=== PATIENT | female | born 1950 | race Caucasian/White ===

== ENCOUNTER 2018-11-25 08:00 | Outpatient (CLI) | payer MEDICARE | END 2018-11-25 23:59 | LOC: LAB.R 08:00 | PROVIDERS: ATTEND Podiatrist | DX: L03.031 Cellulitis of right toe (principal) | CPT/HCPCS: 87070; 87205 ==

== ENCOUNTER 2020-03-28 23:42 | Outpatient (CLI) | payer MEDICARE | END 2020-03-28 23:43 | disposition critical access hospital (66) | LOC: EMS 23:42 | PROVIDERS: ATTEND Surgery | DX: M54.2 Cervicalgia (principal); F41.9 Anxiety disorder, unspecified; R55 Syncope and collapse | CPT/HCPCS: A0425; A0427 ==

== ENCOUNTER 2020-03-28 23:58 | Inpatient (IN) | payer MEDICARE ==
[2020-03-29] MEDS ORDERED: HYDROmorphone 2 MG TABLET PO STA (00:22)
[2020-03-29] MEDS ORDERED: LORazepam 0.5 MG TABLET PO STA (00:22)
[2020-03-29 00:41] LABS: BASOPHILS % (AUTO) 0.3 %; EOSINOPHILS # (AUTO) 0.1 10^3/uL (0.0-0.7); LYMPHOCYTES # (AUTO) 0.6 10^3/uL (1.5-3.5); LYMPHOCYTES % (AUTO) 9.5 %; MEAN CORPUSCULAR HGB CONC 34.7 g/dL (32.0-36.0); MEAN CORPUSCULAR VOLUME 109.3 fL (81.0-99.0); MEAN PLATELET VOLUME 9.3 fL (7.9-10.8); MONOCYTES # (AUTO) 0.6 10^3/uL (0.0-1.0); MONOCYTES % (AUTO) 9.5 %; NEUTROPHILS # (AUTO) 4.9 10^3/uL (1.5-6.6); NEUTROPHILS % (AUTO) 79.1 %; PLT - PLATELET COUNT 162 10^3/uL (130-450); RED BLOOD COUNT 2.37 10^6/uL (4.20-5.40); RED CELL DISTRIBUTION WIDTH 15.5 % (12.0-15.0); WHITE BLOOD COUNT 6.2 x10^3/uL (4.8-10.8)
[2020-03-29 00:56] LABS: ALBUMIN 3.4 g/dL (3.2-5.5); ALBUMIN/GLOBULIN RATIO 0.7 (1.0-2.2); BILIRUBIN,TOTAL 0.8 mg/dL (0.2-1.0); CALCIUM 9.3 mg/dL (8.5-10.3); CREATININE 0.8 mg/dL (0.4-1.0); TOTAL PROTEIN 8.4 g/dL (6.7-8.2)
--- NOTE | 2020-03-29 01:03 | ED Physician Documentation ---
History of Present Illness - Stated complaint Stated Complaint: NECK PAIN, SYNCOPE - Chief complaint Chief Complaint: General - History obtained from History obtained from: Patient - Additonal information Additional information: 69-year-old woman with history of stage IV breast cancer, anxiety, high blood pressure, presents with right lateral posterior neck pain over past couple weeks, constant, aching, radiating from base of skull to shoulder, severe at present, associated with multiple episodes of her visual changes over the past 2 days. She says that she is not sure if she fainted but that she has had multiple episodes of pain associated with "vision going black" over past 2 days. She also has been feeling lightheaded. She was on an oral chemotherapy medication but stopped it a couple weeks ago. She has had diarrhea on and off since then associated with nausea. Denies abdominal pain, fever, chest pain shortness of breath cough confusion or focal weakness. Does endorse generalized weakness. Patient receives her cancer care at [facility]. Review of Systems Ten Systems: 10 systems reviewed and negative Constitutional: denies: Fever, Chills Cardiac: denies: Chest pain / pressure Respiratory: denies: Dyspnea GI: reports: Nausea. denies: Abdominal Pain, Vomiting : denies: Dysuria, Frequency Musculoskeletal: reports: Neck pain PD PAST MEDICAL HISTORY - Past Medical History Past Medical History: Yes Cardiovascular: Hypertension Respiratory: Shortness of breath GI: Other Musculoskeletal: Gout Derm: Other - Past Surgical History Past Surgical History: Yes General: Cholecystectomy Ortho: Arthroscopic surgery HEENT: Tonsil/Adenoidectomy, Other - Present Medications Home Medications: Ambulatory Orders Medication Instructions Recorded Confirmed Cholecalciferol (Vitamin D3) 1,000 unit PO DAILY 04/07/15 04/07/15 [Vitamin D3] Cyanocobalamin (Vitamin B-12) 1,000 mcg PO DAILY 04/07/15 04/07/15 [Vitamin B-12] Hydrochlorothiazide 25 mg PO DAILY 04/07/15 04/07/15 Losartan [Cozaar] 50 mg PO DAILY 04/07/15 04/07/15 Metoprolol Tartrate [Lopressor] 50 mg PO BID 04/07/15 04/11/15 allopurinoL [Allopurinol] 300 mg PO DAILY 04/07/15 04/07/15 - Allergies Allergies/Adverse Reactions: Allergies Allergy/AdvReac Type Severity Reaction Status Date / Time Sulfa (Sulfonamide Allergy Unknown Verified 03/29/20 00:13 Antibiotics) - Social History Does the pt smoke?: No Smoking Status: Never smoker Does the pt drink ETOH?: Yes Does the pt have substance abuse?: No - Immunizations Immunizations are current?: Yes - POLST Patient has POLST: No PD ED PE NORMAL - Vitals Vital signs reviewed: Yes - General General: Alert and oriented X 3 - HEENT HEENT: Atraumatic, PERRL, EOMI - Neck Neck: Supple, no meningeal sign - Cardiac Cardiac: Other (tachycardic rate, regular rhythm) - Respiratory Respiratory: No respiratory distress, Clear bilaterally - Abdomen Abdomen: Non tender, Non distended - Female Female : Deferred - Rectal Rectal: Deferred - Back Back: No spinal TTP, Other (R trapezius muscle ttp at neck insertion and along length of shoulder) - Derm Derm: Normal color - Extremities Extremities: Other (BL 1+ pitting edema) - Neuro Neuro: Alert and oriented X 3 - Psych Psych: Other (anxious mood and affect) Results - Vitals Vitals: Vital Signs - 24 hr 03/29/20 03/29/20 00:00 00:13 Temperature 36.4 C L 36.5 C Heart Rate 100 100 Respiratory 28 H 24 Rate Blood Pressure 166/95 H 166/95 H O2 Saturation 98 98 Oxygen O2 Source Room air - EKG (time done) 0034 Rate: Rate (enter#) (97) Rhythm: Sinus tachycardia [place]: Normal Intervals: Normal NE (borderline 146) QRS: Normal Ischemia: Normal ST segments - Labs Labs: Laboratory Tests 03/29/20 03/29/20 03/29/20 00:35 00:35 00:35 WBC 6.2 RBC 2.37 L Hgb 9.0 L Hct 25.9 L MCV 109.3 H MCH 38.0 H MCHC 34.7 RDW 15.5 H Plt Count 162 MPV 9.3 Neut # (Auto) 4.9 Lymph # (Auto) 0.6 L [place] # (Auto) 0.6 Eos # (Auto) 0.1 Baso # (Auto) 0.0 Absolute Nucleated RBC 0.00 Nucleated RBC % 0.0 Sodium 122 L Potassium 4.2 Chloride 90 L Carbon Dioxide 22 Anion Gap 10.0 BUN 18 Creatinine 0.8 Estimated GFR (MDRD) 71 L Glucose 175 H Calcium 9.3 Total Bilirubin 0.8 AST 69 H ALT 28 Alkaline Phosphatase 178 H Troponin I High Sens 10.7 Total Protein 8.4 H Albumin 3.4 Globulin 5.1 H Albumin/Globulin Ratio 0.7 L Lipase 55 H PD MEDICAL DECISION MAKING - ED course ED course: 69-year-old woman with past medical history ofMetastatic breast cancer presents with neck pain for the past 2 weeks along with chronic lightheadedness, nausea, diarrhea that has worsened over the past 2 weeks as well. Will attempt symptomatic therapy and will obtain CT head for possible syncopal episode yesterday. EKG without acute findings. Patient will likely be a good candidate f or observation. Departure - Departure Disposition: ED Place in Observation Clinical Impression: Syncope, Hyponatremia, Nausea and vomiting, Neck pain Condition: Stable
[2020-03-29] MEDS ORDERED: ONDANSETRON ODT 4 MG TABLET TL STA (01:07)
[2020-03-29] MEDS ORDERED: METOCLOPRAMIDE 10 MG/2 ML VIAL IVP STA (01:30)
[2020-03-29] MEDS ORDERED: ONDANSETRON 4 MG/2 ML VIAL IVP PRN (01:35)
[2020-03-29] MEDS ORDERED: ACETAMINOPHEN 325 MG TABLET PO PRN (01:35)
[2020-03-29] MEDS ORDERED: SODIUM CHLORIDE 0.9% 1,000 ML IV STA (01:36)
[2020-03-29] MEDS ORDERED: SODIUM CHLORIDE 0.9% 1,000 ML IV SCH ×2 (02:00→09:00)
--- NOTE | 2020-03-29 02:05 | HISTORY & PHYSICAL EXAMINATION ---
Chief Complaint - Chief Complaint Chief Complaint: Neck pain History of Present Illness - Admitted From Admitted From:: Home - History Obtained From Records Reviewed: Yes History obtained from: Patient, ER Physician, EMR - History of Present Illness HPI Comment/Other: This is a 69-year-old female with a past medical history significant for stage IV breast cancer, hypertension, chronic hyponatremia who presents today complaining of neck pain. She states the neck pain has been going on now for a few weeks. It was as bad as a 9 out of 10 and that is why she sought medical attention. She reports no recent falls although she did fall a couple of months ago but states her pain did not start until just a few weeks ago. The pain is worse with movement. She also reports numbness in her bilateral upper and lower extremities. She has no focal weaknesses but feels weak all over. She states that yesterday, she felt lightheaded and dizzy and passed out. She denies any trauma when she passed out. She denies any chest pain, dyspnea, palpitations prior to the event. She states she does have metastatic breast cancer to the sternum, lungs, liver. She is currently on anastrozole. She states she did not tolerate chemotherapy and was hospitalized about 6 weeks ago at [facility] in [place]. She also states that she has chronic hyponatremia and it is never as high as 130. She was previously on hydrochlorothiazide and this was discontinue d due to the hyponatremia. She denies any history of heart disease or diabetes. She reports having an echocardiogram over a year and a half ago. She states she has had adequate oral intake over the past few days. She has been nauseous but no vomiting. She has been spitting up a lot of saliva. Denies any abdominal pain. Has had occasional diarrhea on and off for the past couple of weeks as well. She states she only has a bowel movement after she eats. In the emergency department, she was found to be hyponatremic with a sodium of 122. Given the hyponatremia and the syncopal episode at home, medicine was consulted for admission. I did discuss goals of care with the patient and she states that she is a DNR. 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 Her mother had renal disease. Living arrangement: At home Living Situation: With spouse/s.o. Social History Notes: She lives at home with her . She does not smoke. She previously drank alcohol but has not drank in many years now. - POLST Patient has POLST: No Meds/Allgy - Home Medications Home Medications: Ambulatory Orders Medication Instructions Recorded Confirmed Cholecalciferol (Vitamin D3) 1,000 unit PO DAILY 04/07/15 04/07/15 [Vitamin D3] Cyanocobalamin (Vitamin B-12) 1,000 mcg PO DAILY 04/07/15 04/07/15 [Vitamin B-12] Hydrochlorothiazide 25 mg PO DAILY 04/07/15 04/07/15 Losartan [Cozaar] 50 mg PO DAILY 04/07/15 04/07/15 Metoprolol Tartrate [Lopressor] 50 mg PO BID 04/07/15 04/11/15 allopurinoL [Allopurinol] 300 mg PO DAILY 04/07/15 04/07/15 - Allergies Allergies/Adverse Reactions: Allergies Allergy/AdvReac Type Severity Reaction Status Date / Time Sulfa (Sulfonamide Allergy Unknown Verified 03/29/20 00:13 Antibiotics) Review of Systems - Constitutional Constitutional: reports: Fatigue, Weakness. denies: Fever, Chills, Poor appetite - Ears, Nose & Throat Ears, Nose & Throat: denies: Nasal discharge, Nasal congestion, Postnasal drainage - Cardiovascular Cariovascular: reports: Edema, Lightheadedness, Syncope. denies: Chest pain, Exertional dyspnea, Decr. exercise tolerance - Respiratory Respiratory: denies: Cough, SOB at rest, SOB with exertion - Gastrointestinal Gastrointestinal: reports: Diarrhea, Nausea. denies: Abdominal pain, Constipation, Vomiting - Genitourinary Genitourinary: denies: Dysuria, Frequency, Hematuria - Musculoskeletal Musculoskeletal: reports: Back pain. denies: Limited range of motion, Muscle weakness - Neurological Neurological: reports: General weakness, Dizziness, Numbness. denies: Focal weakness - Hematologic/Lymphatic Hematologic/Lymphatic: denies: Anemia, Bleeding tendencies - All Other Systems All Other Systems: reports: Reviewed and negative Prior Level of Functionality: She is independent with her ADLs. Exam - Vital Signs Reviewed Vital Signs: Yes Vital Signs: Vital Signs x48h Temp Pulse Resp BP Pulse Ox 03/29/20 00:13 36.5 C 100 24 166/95 H 98 03/29/20 00:00 36.4 C L 100 28 H 166/95 H 98 - Physical Exam General Appearance: positive: Alert, Mild distress Eyes Bilateral: positive: Normal inspection, Conjunctivae nml ENT: positive: Dry mucous membranes. negative: ENT inspection nml, No signs of dehydration Neck: positive: Nml inspection Respiratory: positive: No respiratory distress, Wheezes, Other (Right chest wall Port-A-Cath in place. Breath sounds diminished in the bilateral bases.) Cardiovascular: positive: No murmur, Tachycardia. negative: Bradycardia, Systolic murmur Abdomen: positive: Non-tender, No distention. negative: Tenderness Back: positive: Other (No obvious cervical spine tenderness, mass, erythema, edema. She does have some tenderness lateral to the C-spine.) Skin: positive: Warm, Dry Extremities: positive: Pedal edema (+2 pitting edema in the bilateral lower extremities) Neurologic/Psychiatric: positive: Sensation nml, Other (Sensations intact in all 4 extremities. She has no focal deficits. She is able to move all 4 extremities.). negative: Disoriented to person, Disoriented to place, Facial droop, Slurred/abnml speech Conclusion/Plan - Problem List (1) Syncope Conclusion/Plan: The etiology of this is not clear at the moment. Her EKG did not suggest ischemia initial troponin is negative. She does appear hypobulimic given dry oral mucosa but she does have significant lower extremity edema which is chronic. At this time, we will obtain echocardiogram in the morning and monitor her on telemetry. Check orthostatics. Trend her troponins. (2) Hyponatremia Conclusion/Plan: He states she has chronic hyponatremia and that her sodium is never above 130. Her sodium is now 122. She does have dry oral mucosa but has significant lower extremity edema. Unfortunate, urine osmolality is a send out lab here so this will not be of much use. We will check a urine sodium and chloride. And she has dry oral mucosa with nausea and vomiting at home, we will gently hydrate her and recheck sodium in the morning. If her sodium declines with IV fluids then she will need free water restriction. We will request labs from [facility] to see what her baseline sodium is. (3) Nausea and vomiting Conclusion/Plan: Reports nausea with some vomiting although this is predominantly just saliva that she is spitting up. She states this is due to her anxiety. Her abdominal exam is benign. We will gently hydrate her and start her on Zofran and Compazine as needed for nausea. If this persists, will consider further imaging of the abdomen. Diet as tolerated. (4) Neck pain Conclusion/Plan: She reports trauma many months ago but neck pain did not start till a few weeks ago. She does report numbness and tingling of the bilateral upper extremities but also complains of numbness in her lower extremities. She has no focal deficits on exam. We will obtain a cervical spine film to evaluate for possible metastatic disease. We will use Tylenol, oxycodone as needed for pain. Will consider a CT of the cervical spine depending on what x-rays show. (5) Metastatic breast cancer Conclusion/Plan: She is reportedly just on anastrozole right now. She states she did not do well with chemotherapy in the past. We will request records from [facility] in [place]. (6) Anemia Conclusion/Plan: Suspect this is likely multifactorial but likely due to her underlying malignancy. Her MCV is elevated at 109. We will check B12, folate, iron, ferritin. (7) Hypertension Conclusion/Plan: She is currently hypertensive with systolic in the 160s. This is likely exacerbated by her neck pain. We will resume her home antihypertensives once dosing is confirmed by pharmacy. - Lab Results Lab results reviewed: Yes Fish Bones: 03/29/20 00:35 03/29/20 00:35 - Diagnostic Imaging Results Diagnostic Imaging Results: positive: Final report reviewed - EKG Results EKG Interpreted Independently: Yes EKG Comparison: No prior EKG EKG Findings: EKG shows a sinus rhythm. No obvious ischemic changes. There is some motion artifact present. Core Measures - Anticipated LOS I expect patient to be DC'd or transferred within 96 hours.: Yes - Issues Hospital Issues and Management Plan: 69-year-old female with metastatic breast cancer presents with neck pain and syncope at home. Found to be hyponatremic. We will place in observation for gentle IV hydration, telemetry, echocardiogram. - DVT/VTE - Prophylaxis VTE/DVT Device ordered at admit?: Yes VTE/DVT Prophylaxis med ordered at admit?: Yes
[2020-03-29 02:41] LABS: C. PNEUMONIAE- RESP PCR PANEL NOT DETECTED
[2020-03-29] MEDS: PROCHLORPERAZINE 10 MG/2 ML VIAL IVP PRN ×3 (03:07→16:21)
[2020-03-29] MEDS: oxyCODONE 5 MG TABLET PO PRN (03:08)
[2020-03-29 06:03] LABS: BASOPHILS % (AUTO) 0.3 %; EOSINOPHILS % (AUTO) 0.1 %; HGB - HEMOGLOBIN 8.8 g/dL (12.0-16.0); LYMPHOCYTES # (AUTO) 0.6 10^3/uL (1.5-3.5); LYMPHOCYTES % (AUTO) 7.4 %; MEAN CORPUSCULAR HEMOGLOBIN 37.9 pg (27.0-31.0); MEAN CORPUSCULAR HGB CONC 34.4 g/dL (32.0-36.0); MEAN CORPUSCULAR VOLUME 110.3 fL (81.0-99.0); MEAN PLATELET VOLUME 9.6 fL (7.9-10.8); MONOCYTES # (AUTO) 0.4 10^3/uL (0.0-1.0); MONOCYTES % (AUTO) 5.4 %; NEUTROPHILS # (AUTO) 6.4 10^3/uL (1.5-6.6); NEUTROPHILS % (AUTO) 86.3 %; PLT - PLATELET COUNT 154 10^3/uL (130-450); RED BLOOD COUNT 2.32 10^6/uL (4.20-5.40); RED CELL DISTRIBUTION WIDTH 15.2 % (12.0-15.0); WHITE BLOOD COUNT 7.4 x10^3/uL (4.8-10.8)
[2020-03-29 06:23] LABS: % IRON SATURATION 13 % (20-50); IRON 41 ug/dL (28-170); TOTAL IRON BINDING CAPACITY 312 ug/dL (250-450); TRANSFERRIN 223 mg/dL (192-382)
[2020-03-29 06:38] LABS: PLATELET ESTIMATE, MANUAL NORMAL (130-450,000) (NORMAL)
[2020-03-29 06:39] LABS: FERRITIN 812.1 ng/mL (11.0-306.8)
[2020-03-29 07:24] LABS: CALCIUM 9.2 mg/dL (8.5-10.3); CREATININE 0.8 mg/dL (0.4-1.0)
--- NOTE | 2020-03-29 07:43 | CT Report ---
PROCEDURE: HEAD WO INDICATIONS: lightheadedness TECHNIQUE: Noncontrast 4.5 mm thick angled axial sections acquired from the foramen magnum to the vertex. For r adiation dose reduction, the following was used: automated exposure control, adjustment of mA and/or kV according to patient size. COMPARISON: None. FINDINGS: Image quality: Excellent. CSF spaces: Basal cisterns are patent. No extra-axial fluid collections. Ventricles are normal in size and shape. Brain: No midline shift. No intracranial masses or hemorrhage. Ruggiero-white matter interface is norm al. Skull and face: Calvarium and visualized facial bones are intact, without suspicious lesions. Sinuses: The right maxillary sinus is opacified. Mastoids are clear. IMPRESSION: 1. No acute intracranial abnormality. 2. Opacification of the right maxillary sinus consistent with sinusitis. No significant discrepancy with the preliminary interpretation. Reviewed by: Carlos Bennett MD on 03/29/2020 7:42 AM PST Approved by: Carlos Bennett MD on 03/29/2020 7:42 AM PST Station ID: [id number]
--- NOTE | 2020-03-29 07:53 | XRAY Report ---
PROCEDURE: Chest 1 View X-Ray INDICATIONS: Chest Pain TECHNIQUE: One view of the chest was acquired. COMPARISON: Chest CT with contrast, 04/07/2015. FINDINGS: Surgical changes and devices: There is a Port-A-Cath on the right with the tip projecting to the left brachiocephalic vein. Lungs and pleura: Bilateral interstitial infiltrates. Left basilar consolidation or atelectasis. Sma ll left pleural effusion may be present. No pneumothorax. Mediastinum: Mediastinal contours appear normal. Heart size is mildly increased. Bones and chest wall: No suspicious bony lesions. Overlying soft tissues appear unremarkable. IMPRESSION: 1. Mild cardiomegaly. Bilateral interstitial infiltrates suspicious for pulmonary edema. 2. Left basilar consolidation or atelectasis. 3. Small left effusion may be present. 4. The right Port-A-Cath tip projects to the left brachiocephalic vein. No significant discrepancy with the preliminary interpretation. Reviewed by: Carlos Bennett MD on 03/29/2020 7:51 AM PST Approved by: Carlos Bennett MD on 03/29/2020 7:51 AM PST Station ID: [id number]
[2020-03-29] MEDS ORDERED: MAGNESIUM SULFATE 2 GRAM 2 GM/50 ML BAG IV ONE (08:16)
--- NOTE | 2020-03-29 08:17 | XRAY Report ---
PROCEDURE: Cervical Spine 2 View INDICATIONS: Neck pain. History of breast cancer. Fall. TECHNIQUE: 4 view(s) of the cervical spine were acquired. COMPARISON: None. FINDINGS: Bones: No fractures or dislocations to the C7-T1 level. Mild reversal of normal cervical lordosis i s seen. Minimal anterolisthesis of C3 on C4 is also noted. Degenerative endplate changes are noted th roughout cervical spine. The lateral masses of C1 appear intact on the odontoid view. No suspicious bony lesions. Soft tissues: No prevertebral soft tissue swelling. IMPRESSION: No acute cervical spine fracture or dislocation. Degenerative disc disease throughout ce rvical spine. Minimal anterolisthesis of C3 on C4. Reviewed by: Mayco Servin MD on 03/29/2020 8:16 AM PST Approved by: Mayco Servin MD on 03/29/2020 8:16 AM PST Station ID: [id number]
[2020-03-29] MEDS: ENOXAPARIN 40 MG/0.4 ML SYRINGE SUBQ SCH (08:37)
--- NOTE | 2020-03-29 08:40 | Ultrasound Report ---
PROCEDURE: Duplex Ext Veins Bilateral INDICATIONS: ALIA VIDHYA TECHNIQUE: Real-time imaging, as well as color and pulse Doppler interrogation, were performed of the deep veins of both legs from the inguinal ligament to the popliteal fossa. COMPARISON: None FINDINGS: The deep veins are normally compressible, and free of intraluminal thrombus. Color and pu lse Doppler demonstrate normal phasic intravascular flow. There is normal augmentation response to d istal compression maneuver. Note is made of bilateral popliteal cysts ((Cordoba's cysts) behind each k nee, measuring up to 1.6 x 4.2 x 4.7 cm on the right and 1.0 x 2.3 x 4.6 cm on the left. IMPRESSION: Bilateral Cordoba's cyst, no DVT found. Reviewed by: Burt Blevins MD on 03/29/2020 8:38 AM PST Approved by: Burt Blevins MD on 03/29/2020 8:38 AM PST Station ID: [id number]
[2020-03-29] MEDS: SODIUM CHLORIDE FLUSH 0.9% 10 ML SYRINGE IVP SCH ×2 (08:53→16:22)
[2020-03-29] MEDS: SODIUM CHLORIDE 1 GM TABLET PO SCH (08:58)
[2020-03-29] MEDS ORDERED: METOPROLOL TARTRATE 50 MG TABLET PO SCH (09:00)
--- NOTE | 2020-03-29 10:47 | PHARMACY PROGRESS NOTE ---
- Best Possible Medication History Admit Date and Time: 03/29/20 0135 Processed by: Pharmacy Medication History completed: Yes Patient Interview: Completed Secondary Source(s): Written medication list, Physician records, Pharmacy records, Insurance records (PATIENT INTERVIEWED BY [employer] TICKET SELLING. PATIENT ABLE TO CONFIRM HOME MEDICATIONS. ) As the person ultimately responsible for medication therapy, providers are able to order a medication from an existing home medication list in [facility] via the "Reconcile Routine" prior to Confirmation of that medication by administrative support manager. Such practice is discouraged except when the physician, in their clinical judgment, deems that a medical need exists for a medication without regard to previous use.
[2020-03-29] MEDS: SODIUM CHLORIDE FLUSH 0.9% 10 ML SYRINGE IVP PRN ×3 (11:29→22:38)
[2020-03-29] MEDS: MORPHINE 2 MG/ML CARPUJECT IVP PRN ×2 (11:30→20:00)
[2020-03-29] MEDS ORDERED: PROMETHAZINE INJ 25 MG in SODIUM CHLORIDE 0.9% 50 ML IV PRN (11:54)
[2020-03-29] MEDS ORDERED: ALBUTEROL NEB 2.5 MG/3 ML INH PRN (11:58)
[2020-03-29] MEDS: ANASTROZOLE 1 MG TABLET PO SCH (12:26)
[2020-03-29] MEDS: LOSARTAN 50 MG TABLET PO SCH (12:26)
[2020-03-29] MEDS: SODIUM CHLORIDE 0.9% 1,000 ML IV SCH (12:26)
[2020-03-29] MEDS: ONDANSETRON 4 MG/2 ML VIAL IVP PRN ×2 (12:27→22:38)
[2020-03-29 13:13] LABS: CALCIUM 9.5 mg/dL (8.5-10.3); CREATININE 0.9 mg/dL (0.4-1.0)
[2020-03-29] MEDS: METOPROLOL SUCCINATE 50 MG TABLET PO SCH (16:22)
[2020-03-30] MEDS: oxyCODONE 5 MG TABLET PO PRN ×2 (00:07→12:30)
[2020-03-30] MEDS: ONDANSETRON ODT 4 MG TABLET TL PRN ×2 (00:07→04:54)
[2020-03-30] MEDS: SODIUM CHLORIDE 0.9% 1,000 ML IV SCH (00:08)
[2020-03-30] MEDS: SODIUM CHLORIDE FLUSH 0.9% 10 ML SYRINGE IVP SCH ×4 (00:10→23:57)
[2020-03-30] MEDS ORDERED: LORazepam 0.5 MG TABLET PO PRN (05:08)
[2020-03-30 05:47] LABS: BASOPHILS % (AUTO) 0.3 %; EOSINOPHILS % (AUTO) 0.4 %; LYMPHOCYTES # (AUTO) 0.7 10^3/uL (1.5-3.5); LYMPHOCYTES % (AUTO) 8.6 %; MEAN CORPUSCULAR HEMOGLOBIN 38.5 pg (27.0-31.0); MEAN CORPUSCULAR HGB CONC 35.2 g/dL (32.0-36.0); MEAN CORPUSCULAR VOLUME 109.4 fL (81.0-99.0); MEAN PLATELET VOLUME 9.1 fL (7.9-10.8); MONOCYTES # (AUTO) 0.8 10^3/uL (0.0-1.0); NEUTROPHILS # (AUTO) 6.2 10^3/uL (1.5-6.6); NEUTROPHILS % (AUTO) 80.1 %; PLT - PLATELET COUNT 166 10^3/uL (130-450); RED BLOOD COUNT 2.34 10^6/uL (4.20-5.40); RED CELL DISTRIBUTION WIDTH 15.4 % (12.0-15.0); WHITE BLOOD COUNT 7.7 x10^3/uL (4.8-10.8)
[2020-03-30 05:59] LABS: CALCIUM 9.3 mg/dL (8.5-10.3); CREATININE 0.9 mg/dL (0.4-1.0); MAGNESIUM 1.8 mg/dL (1.7-2.8)
[2020-03-30] MEDS ORDERED: IOVERSOL 320 100 ML VIAL IVP ONE ×2 (08:59→09:52)
[2020-03-30] MEDS: ENOXAPARIN 40 MG/0.4 ML SYRINGE SUBQ SCH (09:18)
[2020-03-30] MEDS: METOPROLOL SUCCINATE 50 MG TABLET PO SCH (09:19)
[2020-03-30] MEDS: LOSARTAN 50 MG TABLET PO SCH (09:20)
[2020-03-30] MEDS: SODIUM CHLORIDE 1 GM TABLET PO SCH (09:20)
[2020-03-30] MEDS: ANASTROZOLE 1 MG TABLET PO SCH (09:20)
--- NOTE | 2020-03-30 10:07 | CT Report ---
PROCEDURE: ANGIO CHEST W/WO INDICATIONS: suddenly SOB CONTRAST: IV CONTRAST: Optiray 320 ml: 80 PO CONTRAST: *NO PO CONTRAST TECHNIQUE: After the administration of intravenous contrast, 2 mm thick sections acquired from the pulmonary api markus to the posterior costophrenic angles. 3-dimensional maximum intensity projection (MIP) coronal a nd sagittal reformats were then acquired through the thorax. For radiation dose reduction, the follow ing was used: automated exposure control, adjustment of mA and/or kV according to patient size. COMPARISON: 04/07/2015 CT chest with contrast FINDINGS: Image quality: Excellent. Pulmonary arteries: Pulmonary arteries are normal in size, and demonstrate no intraluminal filling d efects to suggest central pulmonary embolism. Lungs and pleura: 2 cm medial left apical lung mass. Reference image 184/7 (axial sequence). Left bas ilar atelectasis, likely involving all the basilar segments of the left lower lobe. Mild left pleural effusion. Minimal right basilar atelectasis. No pleural effusions or pneumothorax. Central and norm pheral airways are patent. Mediastinum: Heart size is normal, without pericardial effusion. Coronary atherosclerotic calcificat ions. Right hilar adenopathy may potentially represent malignant adenopathy. There is also prominent subcarinal lymph node, as well. Thoracic aorta is normal in caliber and enhancement. Esophagus is no rmal in caliber, without hiatal hernia. Bones and chest wall: No suspicious bony lesions. Ribs and thoracic spine appear intact throughout. The thyroid is normal. No axillary or supraclavicular adenopathy. Post left breast lumpectomy and postradiation change, left breast with residual thickening at the area of previous breast mass which had extended to the skin. Abdomen: Visualized upper abdominal solid organs appear normal in the early arterial phase of enhanc ement. IMPRESSION: 1. No evidence acute pulmonary emboli. 2. Postlumpectomy and radiation change in the left breast, with residual masslike scarring versus den sity in the left breast. 3. Collapse of the basilar portion of the left lower lobe with associated small left pleural effusion . 4. 2 cm left apical lung mass, possibly representing metastatic disease or primary bronchogenic carci noma. 5. Right hilar and mediastinal adenopathy is suspicious for metastatic disease. 6. Coronary artery disease. Comment: Consider PET/CT on a nonemergent basis on a later date. Reviewed by: Mamadou Welsh MD on 03/30/2020 10:06 AM PST Approved by: Mamadou Welsh MD on 03/30/2020 10:06 AM PST Station ID: [id number]
[2020-03-30] MEDS: LORazepam 0.5 MG TABLET PO PRN ×2 (11:12→16:16)
--- NOTE | 2020-03-30 12:04 | PROVIDER PROGRESS NOTE ---
Subjective - Prog Note Date Prog Note Date: 03/30/20 - Subjective Pt reports feeling: No change Subjective: Patient report her neck pain is better control, her nausea and vomiting also has some improved. But last night patient suddenly developed shortness of breathing, right now patient needed 2 liter of oxygen. She denies chest pain, palpitation, Fever or chill. Discussed CTA imaging study results with the patient, treatment plan in the next step. CTA show no evidence of PE but Collapse of basilar portion of the left lower lobe With small left pleural effusion, 2 cm left apical lung mass possible representing metastasis disease, Right hilar and mediastinal adenopathy is suspicious for metastasis. Patient also report she had metastatic liver mass. Patient know she has stage IV breast cancer and metastasis to lung and liver. Discussed possible palliative care but patient declined at this point, she states she will see her oncologist and to make the decision for her. Patient's CODE STATUS is still DNR. Current Medications - Current Medications Current Medications: Active Medications Acetaminophen (Acetaminophen 325 Mg Tablet) 650 mg PO Q4HR PRN PRN Reason: Pain 1 to 4 Albuterol (Albuterol Neb 2.5 Mg/3 Ml) 2.5 mg INH RTQ4H PRN PRN Reason: Wheezing Last Admin: 03/30/20 10:57 Dose: 2.5 mg Documented by: Anastrozole (Anastrozole 1 Mg Tablet) 1 mg PO DAILY [facility] Last Admin: 03/30/20 09:20 Dose: 1 mg Documented by: Aspirin (Aspirin Chew 81 Mg Tablet) 81 mg PO DAILY [facility] Enoxaparin Sodium (Enoxaparin 40 Mg/0.4 Ml Syringe) 40 mg SUBQ DAILY [facility] Last Admin: 03/30/20 09:18 Dose: 40 mg Documented by: Ketorolac Tromethamine (Ketorolac 15 Mg/Ml Vial) 15 mg IVP Q6HR PRN PRN Reason: PAIN Stop: 04/03/20 13:20 Lorazepam (Lorazepam 0.5 Mg Tablet) 0.5 mg PO Q4H PRN PRN Reason: Anxiety Last Admin: 03/30/20 11:12 Dose: 0.5 mg Documented by: Losartan Potassium (Losartan 50 Mg Tablet) 50 mg PO DAILY [facility] Last Admin: 03/30/20 09:20 Dose: 50 mg Documented by: Metoprolol Succinate (Metoprolol Succinate 50 Mg Tablet) 100 mg PO DAILY [facility] Last Admin: 03/30/20 09:19 Dose: 100 mg Documented by: Morphine Sulfate (Morphine 2 Mg/Ml Carpuject) 2 mg IVP Q2HR PRN PRN Reason: PAIN Last Admin: 03/29/20 20:00 Dose: 2 mg Documented by: Ondansetron HCl (Ondansetron Odt 4 Mg Tablet) 4 mg TL Q6HR PRN PRN Reason: Nausea / Vomiting Last Admin: 03/30/20 04:54 Dose: 4 mg Documented by: Ondansetron HCl (Ondansetron 4 Mg/2 Ml Vial) 4 mg IVP Q4HR PRN PRN Reason: Nausea / Vomiting Last Admin: 03/29/20 22:38 Dose: 4 mg Documented by: Oxycodone HCl (Oxycodone 5 Mg Tablet) 5 mg PO Q4HR PRN PRN Reason: PAIN Last Admin: 03/30/20 00:07 Dose: 5 mg Documented by: Prochlorperazine Edisylate (Prochlorperazine 10 Mg/2 Ml Vial) 10 mg IVP Q6HR PRN PRN Reason: Nausea / Vomiting Last Admin: 03/29/20 16:21 Dose: 10 mg Documented by: Sodium Chloride (Sodium Chloride Flush 0.9% 10 Ml Syringe) 10 ml IVP PRN PRN PRN Reason: NEEDED PER PROVIDER ORDERS Last Admin: 03/29/20 22:38 Dose: 10 ml Documented by: Sodium Chloride (Sodium Chloride Flush 0.9% 10 Ml Syringe) 10 ml IVP 0100,0900,1700 [facility] Last Admin: 03/30/20 09:20 Dose: Not Given Documented by: Cyanocobalamin (Vitamin B-12) [Vitamin B-12] 1,000 mcg PO DAILY 04/07/15 Losartan [Cozaar] 50 mg PO DAILY 04/07/15 allopurinoL [Allopurinol] 200 mg PO DAILY 04/07/15 Albuterol Sulfate [Proair Digihaler] 2 puffs PO Q4H PRN 03/29/20 Anastrozole 1 mg PO DAILY 03/29/20 Metoprolol Succinate [Toprol Xl] 100 mg PO DAILY 03/29/20 Objective - Vital Signs/Intake & Output Vital Signs: Vital Signs x48h Temp Pulse Pulse Resp BP BP Pulse Ox 12/04/20 10:58 91 26 H 03/30/20 09:23 88 167/87 H 03/30/20 08:47 36.5 C 97 18 154/100 H 95 03/30/20 06:18 87 153/97 H 03/30/20 04:55 36.5 C 93 22 182/99 H 94 Intake & Output: Intake & Output 03/27/20 03/28/20 03/29/20 03/30/20 23:59 23:59 23:59 23:59 Intake Total 2126.385 98.611 Output Total 1900 Balance 226.385 98.611 - Objective General Appearance: positive: Alert, Mild distress. negative: Lethargic Eyes Bilateral: positive: Normal inspection, PERRL, No lid inflammation ENT: positive: ENT inspection nml, No signs of dehydration. negative: Purulent nasal drainage Neck: positive: Nml inspection, Thyroid nml, Trachea midline. negative: Thyromegaly, Tracheal deviation Respiratory: positive: Chest non-tender, Rales. negative: No respiratory distress, Breath sounds nml, Wheezes, Rhonchi Cardiovascular: positive: Regular rate & rhythm, No murmur. negative: Tachycardia, Bradycardia, Systolic murmur, Diastolic murmur Peripheral Pulses: 2+ Radial (R), 2+ Radial (L) Abdomen: positive: Non-tender, Nml bowel sounds, No distention. negative: Tenderness, Guarding, Rebound Back: positive: Nml inspection Skin: positive: Color nml, No rash, Warm, Dry. negative: Cyanosis, Diaphoresis, Pallor Extremities: positive: Non-tender, Full ROM, Pedal edema Neurologic/Psychiatric: positive: Oriented x3, Sensation nml, Mood/affect nml. negative: Weakness, Sensory loss, Facial droop, Slurred/abnml speech, Depressed mood/affect - Lab Results Fish Bones: 03/30/20 05:28 03/30/20 05:28 Other Labs: Lab Results x24hrs 03/30/20 03/30/20 03/30/20 Range/Units 11:07 05:28 05:28 WBC 7.7 (4.8-10.8) x10^3/uL RBC 2.34 L (4.20-5.40) 10^6/uL Hgb 9.0 L (12.0-16.0) g/dL Hct 25.6 L (37.0-47.0) % MCV 109.4 H (81.0-99.0) fL MCH 38.5 H (27.0-31.0) pg MCHC 35.2 (32.0-36.0) g/dL RDW 15.4 H (12.0-15.0) % Plt Count 166 (130-450) 10^3/uL MPV 9.1 (7.9-10.8) fL Neut # (Auto) 6.2 (1.5-6.6) 10^3/uL Lymph # (Auto) 0.7 L (1.5-3.5) 10^3/uL [place] # (Auto) 0.8 (0.0-1.0) 10^3/uL Eos # (Auto) 0.0 (0.0-0.7) 10^3/uL Baso # (Auto) 0.0 (0.0-0.1) 10^3/uL Absolute Nucleated RBC 0.00 x10^3/uL Nucleated RBC % 0.0 /100WBC Sodium (135-145) mmol/L Potassium (3.5-5.0) mmol/L Chloride (101-111) mmol/L Carbon Dioxide (21-32) mmol/L Anion Gap (6-13) BUN (6-20) mg/dL Creatinine (0.4-1.0) mg/dL Estimated GFR (MDRD) (>89) Glucose (70-100) mg/dL Calcium (8.5-10.3) mg/dL Magnesium (1.7-2.8) mg/dL Troponin I High Sens 69.9 H* (2.3-14.8) ng/L Folate 23.26 (5.90 - >24.8) ng/mL 03/30/20 03/29/20 Range/Units 05:28 13:00 WBC (4.8-10.8) x10^3/uL RBC (4.20-5.40) 10^6/uL Hgb (12.0-16.0) g/dL Hct (37.0-47.0) % MCV (81.0-99.0) fL MCH (27.0-31.0) pg MCHC (32.0-36.0) g/dL RDW (12.0-15.0) % Plt Count (130-450) 10^3/uL MPV (7.9-10.8) fL Neut # (Auto) (1.5-6.6) 10^3/uL Lymph # (Auto) (1.5-3.5) 10^3/uL [place] # (Auto) (0.0-1.0) 10^3/uL Eos # (Auto) (0.0-0.7) 10^3/uL Baso # (Auto) (0.0-0.1) 10^3/uL Absolute Nucleated RBC x10^3/uL Nucleated RBC % /100WBC Sodium 124 L 122 L (135-145) mmol/L Potassium 4.4 4.6 (3.5-5.0) mmol/L Chloride 94 L 89 L (101-111) mmol/L Carbon Dioxide 20 L 23 (21-32) mmol/L Anion Gap 10.0 10.0 (6-13) BUN 20 16 (6-20) mg/dL Creatinine 0.9 0.9 (0.4-1.0) mg/dL Estimated GFR (MDRD) 62 L 62 L (>89) Glucose 150 H 141 H (70-100) mg/dL Calcium 9.3 9.5 (8.5-10.3) mg/dL Magnesium 1.8 (1.7-2.8) mg/dL Troponin I High Sens (2.3-14.8) ng/L Folate (5.90 - >24.8) ng/mL ABX Reporting Has patient been on IV antibiotics over the past 48 hours?: No Assessment/Plan - Problem List (1) Shortness of breath Impression: 03/30last night patient suddenly developed shortness of breathing, right now patient needed 2 liter of oxygen. She denies chest pain, palpitation, Fever or chill. CTA show no evidence of PE but Collapse of basilar portion of the left lower lobe With small left pleural effusion, 2 cm left apical lung mass possible representing metastasis disease, Right hilar and mediastinal adenopathy is suspicious for metastasis. It is more likely combination effect with patient metastasis lung mass and small pleural effusion. pt also has bilateral lower extremity edema, start once lasix IV, and continue PO lasix, Supplemental of oxygen, Continue breathing treatment as needed, Patient stated she want to follow-up her oncologist to seek further intervention plan (2) Syncope 03/30 The etiology of this is not clear at the moment. her Echo show preserved EF with no evidence of aortic aortic stenosis. repeated Her EKG did not suggest ischemia. initial troponin is negative, then slight elevated and flat. orthostatics does not support orthostatic hypotension. Patient also present bilaterally lower extremity edema, small pleural effusion. Educated patient Slowly stand, and walk, Keep hydration, Prevention of fall. (3)elevated Troponin / initial troponin is negative, then slight elevated. Patient denies chest pain, palpitation. repeated Her EKG did not suggest ischemia. We will continue check troponin, It is likely demand due to patient respiratory distress. Continue telemetry, continue aspirin, continue metoprolol. (2) Hyponatremia Conclusion/Plan: 03/30 improved, sodium 124. Patient present bilateral lower extremity edema, small pleural effusion. 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 Patient also has history of hyponatremia (3) Nausea and vomiting Conclusion/Plan: 03/30 Inflow, patient report she felt better for nausea and vomiting, Continue antiemesis as needed (4) Neck pain Conclusion/Plan: Patient reported neck pain is better control. X-ray of the neck show degenerative disease without fracture or dislocation, or metastatic lesion. Continue pain management (5) Metastatic breast cancer Conclusion/Plan: ., Patient will continue seek oncologist intervention, she does not want palliative care now (6) Anemia Conclusion/Plan: Hemoglobin is stable. Suspect this is likely multifactorial but likely due to her underlying malignancy. Her MCV is elevated at 109. We will check B12, folate, iron, ferritin. (7) Hypertension Conclusion/Plan: stable, resume home meds.
--- NOTE | 2020-03-30 12:05 | ADVANCE CARE PLANNING NOTE ---
Advance Care Planning - Planning Encounter Date: 03/30/20
[2020-03-30] MEDS: ASPIRIN CHEW 81 MG TABLET PO SCH (12:30)
[2020-03-30] MEDS ORDERED: FUROSEMIDE 20 MG/2 ML VIAL IVP ONE (13:00)
[2020-03-30] MEDS: ONDANSETRON 4 MG/2 ML VIAL IVP PRN (16:33)
[2020-03-30] MEDS: KETOROLAC 15 MG/ML VIAL IVP PRN (20:34)
[2020-03-31] MEDS: KETOROLAC 15 MG/ML VIAL IVP PRN ×3 (04:52→22:16)
[2020-03-31 05:14] LABS: BASOPHILS % (AUTO) 0.1 %; EOSINOPHILS % (AUTO) 0.3 %; HGB - HEMOGLOBIN 8.2 g/dL (12.0-16.0); LYMPHOCYTES % (AUTO) 11.5 %; MEAN CORPUSCULAR HEMOGLOBIN 37.8 pg (27.0-31.0); MEAN CORPUSCULAR HGB CONC 33.9 g/dL (32.0-36.0); MEAN CORPUSCULAR VOLUME 111.5 fL (81.0-99.0); MEAN PLATELET VOLUME 9.5 fL (7.9-10.8); MONOCYTES # (AUTO) 1.4 10^3/uL (0.0-1.0); MONOCYTES % (AUTO) 15.8 %; NEUTROPHILS # (AUTO) 6.2 10^3/uL (1.5-6.6); NEUTROPHILS % (AUTO) 71.8 %; PLT - PLATELET COUNT 174 10^3/uL (130-450); RED BLOOD COUNT 2.17 10^6/uL (4.20-5.40); RED CELL DISTRIBUTION WIDTH 15.4 % (12.0-15.0); WHITE BLOOD COUNT 8.6 x10^3/uL (4.8-10.8)
[2020-03-31 05:20] LABS: CALCIUM 9.1 mg/dL (8.5-10.3); CREATININE 1.1 mg/dL (0.4-1.0); MAGNESIUM 1.6 mg/dL (1.7-2.8)
[2020-03-31] MEDS ORDERED: MAGNESIUM SULFATE 2 GRAM 2 GM/50 ML BAG IV ONE (07:15)
[2020-03-31] MEDS: ONDANSETRON 4 MG/2 ML VIAL IVP PRN (08:34)
[2020-03-31] MEDS: SODIUM CHLORIDE 1 GM TABLET PO SCH (08:41)
[2020-03-31] MEDS: ANASTROZOLE 1 MG TABLET PO SCH (08:42)
[2020-03-31] MEDS: LOSARTAN 50 MG TABLET PO SCH (08:42)
[2020-03-31] MEDS: ASPIRIN CHEW 81 MG TABLET PO SCH (08:42)
[2020-03-31] MEDS: ENOXAPARIN 40 MG/0.4 ML SYRINGE SUBQ SCH (08:42)
[2020-03-31] MEDS: SODIUM CHLORIDE FLUSH 0.9% 10 ML SYRINGE IVP SCH ×2 (08:42→16:28)
[2020-03-31] MEDS: METOPROLOL SUCCINATE 50 MG TABLET PO SCH (08:42)
[2020-03-31] MEDS ORDERED: FUROSEMIDE 20 MG TABLET PO SCH (09:00)
[2020-03-31 09:39] LABS: % IRON SATURATION 11 % (20-50); IRON 31 ug/dL (28-170); TOTAL IRON BINDING CAPACITY 284 ug/dL (250-450); TRANSFERRIN 203 mg/dL (192-382)
[2020-03-31] MEDS: allopurinoL 100 MG TABLET PO SCH (11:30)
--- NOTE | 2020-03-31 13:11 | PROVIDER PROGRESS NOTE ---
Assessment/Plan - Problem List (1) Hyponatremia Assessment/Plan: Serum sodium went down again. Her urine sodium was 60 indicating inappropriate loss of sodium and excessive water retention. 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 Her BUN/creatinine went up today, indicating intravascular volume depletion. We will continue with the free water restriction, the half of a salt tablet, but stop the IV Lasix. (2) Syncope Assessment/Plan: Back she had syncope from volume depletion related to low serum sodium. Her Echo show preserved EF with no evidence of aortic aortic stenosis. Her EKG did not suggest ischemia. An orthostatic check x1 at admission did not show orthostatic hypotension. Educated patient to slowly stand, and walk,Prevention of fall. We will continue to check daily orthostatic vital signs. Will request PT evaluation today. Probable discharge tomorrow (3) Anemia Assessment/Plan: Hemoglobin is stable. Suspect this is multifactorial but likely due to her underlying malignancy. Her MCV is elevated at 109. We checked B12, folate, iron, ferritin and these were normal. 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 (4) Nausea and vomiting Assessment/Plan: She feels much better today. She still wants to continue with a clear liquid diet but only intermittent solids such as crackers and cheese. Continue as needed antiemetic (5) Neck pain Assessment/Plan: X-ray of the neck showed degenerative disease without fracture or dislocation, or metastatic lesion. Perhaps she strained it when she had the syncope. Patient reported neck pain is better controlled. Continue pain management (6) Metastatic breast cancer Assessment/Plan: Patient will continue seek oncologist intervention, she does not want palliative care now (7) Shortness of breath Assessment/Plan: Resolved, she is on room air. On 03/30 patient suddenly developed shortness of breathing, needed 2 liter of oxygen. She denies chest pain, palpitation, Fever or chill. CTA show no evidence of PE but Collapse of basilar portion of the left lower lobe With small left pleural effusion, 2 cm left apical lung mass possible representing metastasis disease, Right hilar and mediastinal adenopathy is suspicious for metastasis. It is more likely combination effect with patient metastasis lung mass and small pleural effusion. - Current Meds Current Meds: Current Medications Generic Name Dose Route Start Last Admin Trade Name Freq PRN Reason Stop Dose Admin Albuterol 2.5 mg 03/29/20 11:58 03/30/20 10:57 Albuterol Neb 2.5 Mg/3 Ml INH 2.5 mg RTQ4H PRN Administration Wheezing Allopurinol 200 mg 03/31/20 09:00 03/31/20 11:30 Allopurinol 100 Mg Tablet PO 200 mg DAILY [facility]AYLYN Administration Anastrozole 1 mg 03/29/20 12:00 03/31/20 08:42 Anastrozole 1 Mg Tablet PO 1 mg DAILY [facility]N Administration Aspirin 81 mg 03/30/20 12:00 03/31/20 08:42 Aspirin Chew 81 Mg Tablet PO 81 mg DAILY [facility]N Administration Enoxaparin Sodium 40 mg 03/29/20 09:00 03/31/20 08:42 Enoxaparin 40 Mg/0.4 Ml Syringe SUBQ 40 mg DAILY [facility]LYN Administration Ketorolac Tromethamine 15 mg 03/29/20 13:21 03/31/20 11:30 Ketorolac 15 Mg/Ml Vial IVP 04/03/20 13:20 15 mg Q6HR PRN Administration PAIN Lorazepam 0.5 mg 03/30/20 10:39 03/30/20 16:16 Lorazepam 0.5 Mg Tablet PO 0.5 mg Q4H PRN Administration Anxiety Losartan Potassium 50 mg 03/29/20 12:00 03/31/20 08:42 Losartan 50 Mg Tablet PO 50 mg DAILY [facility]N Administration Metoprolol Succinate 100 mg 03/29/20 16:00 03/31/20 08:42 Metoprolol Succinate 50 Mg Tablet PO 100 mg DAILY [facility] Administration Morphine Sulfate 2 mg 03/29/20 02:03 03/29/20 20:00 Morphine 2 Mg/Ml Carpuject IVP 2 mg Q2HR PRN Administration PAIN Ondansetron HCl 4 mg 03/29/20 01:35 03/30/20 04:54 Ondansetron Odt 4 Mg Tablet TL 4 mg Q6HR PRN Administration Nausea / Vomiting Ondansetron HCl 4 mg 03/29/20 11:53 03/31/20 08:34 Ondansetron 4 Mg/2 Ml Vial IVP 4 mg Q4HR PRN Administration Nausea / Vomiting Oxycodone HCl 5 mg 03/29/20 02:03 03/30/20 12:30 Oxycodone 5 Mg Tablet PO 5 mg Q4HR PRN Administration PAIN Prochlorperazine Edisylate 10 mg 03/29/20 02:03 03/29/20 16:21 Prochlorperazine 10 Mg/2 Ml Vial IVP 10 mg Q6HR PRN Administration Nausea / Vomiting Sodium Chloride 10 ml 03/29/20 01:35 03/29/20 22:38 Sodium Chloride Flush 0.9% 10 Ml Syringe IVP 10 ml PRN PRN Administration NEEDED PER PROVIDER ORDERS Sodium Chloride 10 ml 03/29/20 09:00 03/31/20 08:42 Sodium Chloride Flush 0.9% 10 Ml Syringe IVP 10 ml 0100,0900,1700 [facility]AYLYN Administration Sodium Chloride 0.5 gm 03/31/20 09:00 03/31/20 08:41 Sodium Chloride 1 Gm Tablet PO 0.5 gm DAILY [facility]N Administration - Lab Result Fish Bone Diagrams: 03/31/20 04:57 03/31/20 04:57 - Additional Planning My Orders: My Active Orders 03/31/20 Evaluate and Treat PT [PT] Routine 03/31/20 08:38 Orthostatic [Vital Signs - Orthostatic] [RC] DAILY 03/31/20 09:00 allopurinoL [Zyloprim] 200 mg PO DAILY Subjective - Subjective Patient Reports: Feeling Better, Resting Comfortably (Has no complaints, is sitting in her recliner with legs elevated) Objective Vital Signs: Vital Signs - 24 hr 03/30/20 03/30/20 03/30/20 15:51 21:00 21:07 Temperature 36.8 C 36.5 C Heart Rate 84 Heart Rate [ Brachial] Heart Rate [ 93 84 Radial] Respiratory 22 20 20 Rate Blood Pressure 168/88 H 159/65 H [Left Radial artery] Blood Pressure [Right Radial artery] O2 Saturation 94 95 03/30/20 03/31/20 03/31/20 23:58 04:51 07:30 Temperature 36.3 C L 36.5 C Heart Rate 81 Heart Rate [ 84 Brachial] Heart Rate [ 82 Radial] Respiratory 16 16 16 Rate Blood Pressure 132/74 H 151/73 H [Left Radial artery] Blood Pressure [Right Radial artery] O2 Saturation 94 93 03/31/20 03/31/20 08:00 08:48 Temperature 36.9 C 36.9 C Heart Rate Heart Rate [ Brachial] Heart Rate [ 78 78 Radial] Respiratory 18 18 Rate Blood Pressure 133/94 H [Left Radial artery] Blood Pressure 133/94 H [Right Radial artery] O2 Saturation 100 100 Oxygen O2 Source Room air I&O (Last 24 Hrs): Intake and Output Totals x24h 03/29/20 03/30/20 03/31/20 23:59 23:59 23:59 Intake Total 2126.385 2045.611 340 Output Total 1900 1700 300 Balance 226.385 345.611 40 General: Alert, Oriented x3 HEENT: Mucous membr. moist/pink, Other (Alopecia) Neck: Supple, No JVD Neuro: Alert, Non Focal Cardiovascular: Regular rate, No murmurs Respiratory: No respiratory distress, Breath sounds nml Abdomen: Soft Extremities: Other (Trace to 1+ ankle edema) - Results Results: Laboratory Results WBC 8.6 x10^3/uL (4.8-10.8) 03/31/20 04:57 RBC 2.17 10^6/uL (4.20-5.40) L 03/31/20 04:57 Hgb 8.2 g/dL (12.0-16.0) L 03/31/20 04:57 Hct 24.2 % (37.0-47.0) L 03/31/20 04:57 MCV 111.5 fL (81.0-99.0) H 03/31/20 04:57 MCH 37.8 pg (27.0-31.0) H 03/31/20 04:57 MCHC 33.9 g/dL (32.0-36.0) 03/31/20 04:57 RDW 15.4 % (12.0-15.0) H 03/31/20 04:57 Plt Count 174 10^3/uL (130-450) 03/31/20 04:57 MPV 9.5 fL (7.9-10.8) 03/31/20 04:57 Neut # (Auto) 6.2 10^3/uL (1.5-6.6) 03/31/20 04:57 Lymph # (Auto) 1.0 10^3/uL (1.5-3.5) L 03/31/20 04:57 [place] # (Auto) 1.4 10^3/uL (0.0-1.0) H 03/31/20 04:57 Eos # (Auto) 0.0 10^3/uL (0.0-0.7) 03/31/20 04:57 Baso # (Auto) 0.0 10^3/uL (0.0-0.1) 03/31/20 04:57 Absolute Nucleated RBC 0.00 x10^3/uL 03/31/20 04:57 Nucleated RBC % 0.0 /100WBC 03/31/20 04:57 Manual Slide Review Indicated 03/29/20 05:20 Platelet Estimate NORMAL (130-450,000) (NORMAL) 03/29/20 05:20 RBC Morph Micro Appear 2+ MACROCYTOSIS (NORMAL) 1+ POLYCHROMASIA (NORMAL) 03/29/20 05:20 RBC Morph Micro Appear 2+ MACROCYTOSIS (NORMAL) 1+ POLYCHROMASIA (NORMAL) 03/29/20 05:20 Sodium 122 mmol/L (135-145) L 03/31/20 04:57 Potassium 3.9 mmol/L (3.5-5.0) 03/31/20 04:57 Chloride 93 mmol/L (101-111) L 03/31/20 04:57 Carbon Dioxide 20 mmol/L (21-32) L 03/31/20 04:57 Anion Gap 9.0 (6-13) 03/31/20 04:57 BUN 24 mg/dL (6-20) H 03/31/20 04:57 Creatinine 1.1 mg/dL (0.4-1.0) H 03/31/20 04:57 Estimated GFR (MDRD) 49 (>89) L 03/31/20 04:57 Glucose 123 mg/dL (70-100) H 03/31/20 04:57 Calcium 9.1 mg/dL (8.5-10.3) 03/31/20 04:57 Magnesium 1.6 mg/dL (1.7-2.8) L 03/31/20 04:57 Iron 31 ug/dL (28-170) 03/31/20 04:57 TIBC 284 ug/dL (250-450) 03/31/20 04:57 % Saturation 11 % (20-50) L 03/31/20 04:57 Transferrin 203 mg/dL (192-382) 12/05/20 04:57 Ferritin 812.1 ng/mL (11.0-306.8) H 03/29/20 05:20 Total Bilirubin 0.8 mg/dL (0.2-1.0) 03/29/20 00:35 AST 69 IU/L (10-42) H 03/29/20 00:35 ALT 28 IU/L (10-60) 03/29/20 00:35 Alkaline Phosphatase 178 IU/L (42-121) H 03/29/20 00:35 Troponin I High Sens 63.4 ng/L (2.3-14.8) H* 03/30/20 17:05 Total Protein 8.4 g/dL (6.7-8.2) H 03/29/20 00:35 Albumin 3.4 g/dL (3.2-5.5) 03/29/20 00:35 Globulin 5.1 g/dL (2.1-4.2) H 03/29/20 00:35 Albumin/Globulin Ratio 0.7 (1.0-2.2) L 03/29/20 00:35 Lipase 55 U/L (22-51) H 03/29/20 00:35 Vitamin B12 5024 pg/mL (180-914) H 03/29/20 05:20 Folate 23.26 ng/mL (5.90 - >24.8) 03/30/20 05:28 Urine Sodium 60.0 mmol/L 03/29/20 06:37 Nasal Adenovirus (PCR) NOT DETECTED 03/29/20 01:30 Nasal B. parapertussis DNA (PCR) NOT DETECTED 03/29/20 01:30 Nasal Coronavir 229E PCR NOT DETECTED 03/29/20 01:30 Nasal Coronavir HKU1 PCR NOT DETECTED 03/29/20 01:30 Nasal Coronavir NL63 PCR NOT DETECTED 03/29/20 01:30 Nasal Coronavir OC43 PCR NOT DETECTED 03/29/20 01:30 Nasal Enterovir/Rhinovir PCR NOT DETECTED 03/29/20 01:30 Nasal Influenza B PCR NOT DETECTED 03/29/20 01:30 Nasal Influenza A PCR NOT DETECTED 03/29/20 01:30 Nasal Parainfluen 1 PCR NOT DETECTED 03/29/20 01:30 Nasal Parainfluen 2 PCR NOT DETECTED 03/29/20 01:30 Nasal Parainfluen 3 PCR NOT DETECTED 03/29/20 01:30 Nasal Parainfluen 4 PCR NOT DETECTED 03/29/20 01:30 Nasal RSV (PCR) NOT DETECTED 03/29/20 01:30 Nasal B.pertussis DNA PCR NOT DETECTED 03/29/20 01:30 Nasal C.pneumoniae (PCR) NOT DETECTED 03/29/20 01:30 [place] Human Metapneumo PCR NOT DETECTED 03/29/20 01:30 Nasal M.pneumoniae (PCR) NOT DETECTED 03/29/20 01:30 Nasal SARS-CoV-2 (PCR) NOT DETECTED 03/29/20 01:30
[2020-03-31] MEDS: oxyCODONE 5 MG TABLET PO PRN (15:47)
--- NOTE | 2020-03-31 16:10 | Discharge Plan ---
Discharge Plan Problem Reviewed?: Yes Disposition: Home, Self Care Condition: Fair Prescriptions: oxyCODONE [Roxicodone] 2.5 - 5 mg PO Q6HR PRN #10 tablet PRN Reason: Severe Pain Ondansetron Odt [Zofran Odt] 4 mg TL Q6HR PRN #20 tablet PRN Reason: Nausea / Vomiting LORazepam [Ativan] 0.25 mg PO Q6H PRN #10 tablet PRN Reason: Anxiety Lidocaine Patch 5% [Lidoderm Patch] 1 each TOP DAILY PRN #30 patch PRN Reason: Spasms Sodium Chloride [Salt Tab] 0.5 gm PO DAILY #15 tablet Diet: Soft (Please eat the diet that you prefer: All liquids and different types of easy to digest solids are fine) Activity Restrictions: Activity as Tolerated Health Concerns: You were admitted to get hydrated after you were dizzy and nearly fainted, and to treat your low serum sodium and help with the nausea and anxiety feeling from neck spasm pain. You are being discharged and have new prescriptions for: #1 Zofran tablets to put under your tongue if you get nauseated, #2 Ativan anxiety pills to use if the pain causes severe anxiety, #3 Lidocaine topical pain patches to put on your skin on your neck for the pain, #4 new Sodium salt tablet to take to raise your serum sodium level and, #5 a prescription for Oxycodone if you have SEVERE pain. All new prescriptions were electronically sent to your [facility] pharmacy in [place]. You may also use Ibuprofen, 600 mg every 6 hours if needed for pain control. Please advance your diet as tolerated. Resume all your prehospital medications. Plan of Treatment: As above. Care Goals: Improvement in symptoms and stabilization are the goals. Assessment: Patient understands and is agreeable with the plan. Additional Instructions or Follow Up instructions: The see your Primary Care Provider in the next 1 to 2 weeks for further prescription medicines to treat the above. No Smoking: If you smoke, Please STOP! Call for help. Follow-up with: PURNIMA SALEH MD [Primary Care Provider] -
[2020-04-01] MEDS: SODIUM CHLORIDE FLUSH 0.9% 10 ML SYRINGE IVP SCH ×2 (00:38→07:40)
[2020-04-01 05:24] LABS: BASOPHILS % (AUTO) 0.2 %; EOSINOPHILS # (AUTO) 0.1 10^3/uL (0.0-0.7); EOSINOPHILS % (AUTO) 0.6 %; HGB - HEMOGLOBIN 8.3 g/dL (12.0-16.0); LYMPHOCYTES # (AUTO) 0.9 10^3/uL (1.5-3.5); LYMPHOCYTES % (AUTO) 9.4 %; MEAN CORPUSCULAR HEMOGLOBIN 37.2 pg (27.0-31.0); MEAN CORPUSCULAR HGB CONC 33.1 g/dL (32.0-36.0); MEAN CORPUSCULAR VOLUME 112.6 fL (81.0-99.0); MEAN PLATELET VOLUME 9.2 fL (7.9-10.8); MONOCYTES # (AUTO) 1.2 10^3/uL (0.0-1.0); MONOCYTES % (AUTO) 11.4 %; NEUTROPHILS # (AUTO) 7.8 10^3/uL (1.5-6.6); NEUTROPHILS % (AUTO) 77.8 %; PLT - PLATELET COUNT 177 10^3/uL (130-450); RED BLOOD COUNT 2.23 10^6/uL (4.20-5.40); RED CELL DISTRIBUTION WIDTH 15.7 % (12.0-15.0); WHITE BLOOD COUNT 10.1 x10^3/uL (4.8-10.8)
[2020-04-01 05:31] LABS: CALCIUM 9.2 mg/dL (8.5-10.3); CREATININE 1.1 mg/dL (0.4-1.0)
[2020-04-01] MEDS: KETOROLAC 15 MG/ML VIAL IVP PRN (07:39)
[2020-04-01] MEDS: ANASTROZOLE 1 MG TABLET PO SCH (08:27)
[2020-04-01] MEDS: ASPIRIN CHEW 81 MG TABLET PO SCH (08:27)
[2020-04-01] MEDS: LORazepam 0.5 MG TABLET PO PRN (08:27)
[2020-04-01] MEDS: LOSARTAN 50 MG TABLET PO SCH (08:27)
[2020-04-01] MEDS: METOPROLOL SUCCINATE 50 MG TABLET PO SCH (08:28)
[2020-04-01] MEDS: allopurinoL 100 MG TABLET PO SCH (08:28)
[2020-04-01] MEDS: SODIUM CHLORIDE 1 GM TABLET PO SCH (08:28)
[2020-04-01] MEDS: ENOXAPARIN 40 MG/0.4 ML SYRINGE SUBQ SCH (08:29)
--- NOTE | 2020-04-01 10:43 | DISCHARGE SUMMARY ---
Discharge Summary Admit Date: 03/29/20 Discharge Date: 04/01/20 Discharging Provider: Dr Donna Miramontes Primary Care Provider: Dr Austin Mesa Code Status: Do Not Attempt Resuscitation Condition at Discharge: Fair Discharge Disposition: [facility] History of Present Illness: From the admission H&P of Dr Michele Medley: This is a 69-year-old female with a past medical history significant for stage IV breast cancer, hypertension, chronic hyponatremia who presents today complaining of neck pain. She states the neck pain has been going on now for a few weeks. It was as bad as a 9 out of 10 and that is why she sought medical a ttention. She reports no recent falls although she did fall a couple of months ago but states her pain did not start until just a few weeks ago. The pain is worse with movement. She also reports numbness in her bilateral upper and lower extremities. She has no focal weaknesses but feels weak all over. She states that yesterday, she felt lightheaded and dizzy and passed out. She denies any trauma when she passed out. She denies any chest pain, dyspnea, palpitations prior to the event. She states she does have metastatic breast cancer to the sternum, lungs, liver. She is currently on anastrozole. She states she did not tolerate chemotherapy and was hospitalized about 6 weeks ago at [facility] in [place]. She also states that she has chronic hyponatremia and it is never as high as 130. She was previously on hydrochlorothiazide and this was discontinued due to the hyponatremia. She denies any history of heart disease or diabetes. She reports having an Echocardiogram over a year and a half ago. She states she has had adequate oral intake over the past few days, despite bein g nauseous but had no vomiting. She has been spitting up a lot of saliva. Denies any abdominal pain. Has had occasional diarrhea on and off for the past couple of weeks as well. She states she only has a bowel movement after she eats. In the emergency department, she was found to be hyponatremic with a sodium of 122. Given the hyponatremia and the syncopal episode at home, this Hospitalist was consulted for admission. I did discuss goals of care with the patient and she states that she is a DNR. - HOSPITAL COURSE Hospital Course: (1) Hyponatremia She did have dry oral mucosa but had significant lower extremity edema. She was started on iv Normal Saline, got 2L in the ER and 1L the next day. Her sodium was followed several times a day. Serum Na went from 122>> 121>> 122. Then she was transitioned to a 1/2 salt tablet daily, free water restriction and got Lasix x2. Her urine sodium was 60 indicating inappropriate loss of sodium and excessive water retention. This is consistent with SIADH. Her SIADH is proba hayley from her cancer. Her BUN/creatinine bess near end-hospitalization, indicating intravascular volume depletion. She was continued on the free water restriction and the half of a salt tablet, but stopped getting Lasix. (2) Syncope Her Echo show preserved EF with no evidence of aortic aortic stenosis. Her EKG did not suggest ischemia. Orthostatic checks did not show orthostatic hypotension. Likley, she had syncope from volume depletion related to low serum sodium and dehydration. We educated patient to slowly stand, to prevent falls. PT evaluation was done and recommended to start Home Health PT (which was already arranged). (3) Anemia Her admission Hemoglobin of 9 was stable. Suspect this is multifactorial but likely due to her underlying malignancy. Her MCV is elevated at 109. We checked B12, folate, iron, ferritin and these were normal. Therefore this is anemia of chronic disease. After our hydration, on the day of discharge, her Hgb was 8.3. (4) Nausea and vomiting She felt better with iv antiemetics and a liquid diet. She still wanted to continue with a clear liquid diet plus add only intermittent solids such as crackers and cheese, also protein drinks were tolerated. She was discharged with a prescription for prn translingual Zofran. (5) Neck pain X-ray of the neck showed degenerative disease without fracture or dislocation, or metastatic lesion. She required for relief of pain. Perhaps she strained it when she had the recent syncope, or when she had the fall 2 weeks ago, into a door face first. PT evaluated her and noted muscle spasm which improved with stretch and active ROM exercise. She was discharged with several tablets of Roxycodone and Lidocaine topical patches. (6) Anxiety She noticed that her neck pain and nausea was worse when she had anxiety. She was discharged with several tablets of Ativan. (7) Metastatic breast cancer Patient wishes to continue to seek her Oncologist's intervention, she does not want Palliative Care currently. (8) Shortness of breath On 03/30/20, the patient suddenly developed shortness of breathing, needed 2 liter of oxygen. She denied chest pain, palpitation, fever or chills. CTangio of chest showed no evidence of PE but there was collapse of basilar portion of the left lower lobe with small left pleural effusion, 2 cm left apical lung mass possible representing metastasis disease, also right hilar and mediastinal ad enopathy, suspicious for metastasis. By the following day, she was not SOB and oxygenating well on room air. - ALLERGIES Allergies/Adverse Reactions: Allergies Allergy/AdvReac Type Severity Reaction Status Date / Time Sulfa (Sulfonamide Allergy Unknown Verified 03/29/20 00:13 Antibiotics) - MEDICATIONS Home Medications: Ambulatory Orders Medication Instructions Recorded Confirmed Cyanocobalamin (Vitamin B-12) 1,000 mcg PO DAILY 04/07/15 03/29/20 [Vitamin B-12] Losartan [Cozaar] 50 mg PO DAILY 04/07/15 03/29/20 allopurinoL [Allopurinol] 200 mg PO DAILY 04/07/15 03/29/20 Albuterol Sulfate [Proair 2 puffs PO Q4H PRN 03/29/20 03/29/20 Digihaler] Anastrozole 1 mg PO DAILY 03/29/20 03/29/20 Metoprolol Succinate [Toprol Xl] 100 mg PO DAILY 03/29/20 03/29/20 LORazepam [Ativan] 0.25 mg PO Q6H PRN #10 tablet 04/01/20 Lidocaine Patch 5% [Lidoderm Patch] 1 each TOP DAILY PRN #30 patch 04/01/20 Ondansetron Odt [Zofran Odt] 4 mg TL Q6HR PRN #20 tablet 04/01/20 Sodium Chloride [Salt Tab] 0.5 gm PO DAILY #15 tablet 04/01/20 oxyCODONE [Roxicodone] 2.5 - 5 mg PO Q6HR PRN #10 tablet 04/01/20 - PHYSICAL EXAM AT DISCHARGE General Appearance: positive: No acute distress, Other (Alopecia, Obese WF) Eyes Bilateral: positive: Normal inspection, EOMI ENT: positive: ENT inspection nml, No signs of dehydration Neck: positive: Nml inspection, No JVD Respiratory: positive: No respiratory distress, Breath sounds nml Cardiovascular: positive: Regular rate & rhythm, No murmur Abdomen: positive: Non-tender, No distention, Other (Obese with pannus) Skin: positive: Warm, Dry Extremities: positive: Pedal edema (Trace pedal edema) Neurologic/Psychiatric: positive: Oriented x3, Motor nml - LABS Result Diagrams: 04/01/20 05:10 04/01/20 05:10 - DIAGNOSTIC IMAGING Diagnostic Imaging Results: Final report reviewed
[2020-04-01 11:37] VITALS: BP 134/60
== END 2020-04-01 11:30 | disposition home health service (06) | DRG 644 ==
LOC: EDUNIT# → ED 23:58 → MS2 03-29 01:35 → OBSVTOIN 03-29 10:47 → INTOOBSV 03-29 10:47 → OBSVTOIN 03-30 10:47 → UNDODISIN 04-01 11:30
PROVIDERS: ADMIT Internal Medicine; ATTEND Internal Medicine
DX: E22.2 Syndrome of inappropriate secretion of antidiuretic hormone (principal); J90 Pleural effusion, not elsewhere classified; M54.2 Cervicalgia; C78.7 Secondary malignant neoplasm of liver and intrahepatic bile duct; C79.9 Secondary malignant neoplasm of unspecified site; C78.00 Secondary malignant neoplasm of unspecified lung; C79.51 Secondary malignant neoplasm of bone; R55 Syncope and collapse; E86.0 Dehydration; C50.919 Malignant neoplasm of unspecified site of unspecified female breast; D63.0 Anemia in neoplastic disease; R11.2 Nausea with vomiting, unspecified; F41.9 Anxiety disorder, unspecified; M47.812 Spondylosis without myelopathy or radiculopathy, cervical region; R59.0 Localized enlarged lymph nodes; R91.8 Other nonspecific abnormal finding of lung field; I10 Essential (primary) hypertension; M10.9 Gout, unspecified; Z66 Do not resuscitate; Z91.81 History of falling; Z79.899 Other long term (current) drug therapy
CPT/HCPCS: 36415; 70450; 71045; 71275; 72040; 80048; 80053; 82607; 82728; 82746; 83540; 83690; 83735; 84300; 84466; 84484; 85025; 87631; 93005; 93306; 93970; 94640; 96365; 96366; 96372; 96375; 96376; 97110; 97161; 99284; 99285; A9270; G0378; J1650; J2765; Q0162; Q9967; 0202U